=== PATIENT | female | born 1950 | race African-American/Black ===

== ENCOUNTER 2017-01-07 08:35 | Outpatient (CLI) | payer OTHER ==
[2014-05-08 10:02] VITALS: BP 120/78
[2017-01-07 09:26] LABS: eGFR (African) > 60; eGFR (Non-African) > 60
== END 2017-01-07 08:36 ==
LOC: LAB 08:35
PROVIDERS: ATTEND Family Medicine
DX: I10 Essential (primary) hypertension (principal)
CPT/HCPCS: 36415; 80053; 80061

== ENCOUNTER 2018-02-11 13:51 | Outpatient (CLI) | payer OTHER ==
[2014-05-08 10:02] VITALS: BP 120/78
[2018-02-11 14:38] LABS: eGFR (Non-African) > 60
== END 2018-02-11 14:00 ==
LOC: LAB 13:51
PROVIDERS: ATTEND Physician Assistant
DX: I10 Essential (primary) hypertension (principal); R00.0 Tachycardia, unspecified; Z13.6 Encounter for screening for cardiovascular disorders
CPT/HCPCS: 36415; 80053; 80061; 84439; 84443; 84481

== ENCOUNTER 2019-03-17 09:54 | Outpatient (CLI) | payer OTHER ==
[2014-05-08 10:02] VITALS: BP 120/78
[2019-03-17 10:52] LABS: HDL 56 mg/dL (>40); eGFR (Non-African) > 60
--- NOTE | 2019-03-17 12:26 | Diagnostic Imaging Report ---
JESSICA CRAFT [facility] [id number] [id number] Report Submission Date: Mar 17, 2019 12:23:30 PM CDT Patient Study Name: SULTANA HENNESSY Date: Mar 17, 2019 12:00:00 AM CDT Modality Type: DEXA\OT Gender: F Description: DEXA : 48 Institution: [facility] Physician: JESSICA CRAFT Examination: Bone density History: Assess bone mineralization Comparison exams: None available Technique: DEXA protocol Findings: Average bone mineral density from L1 through L4: 1.120 grams cm2. T score: -0.5 Average bone mineral density of the left femoral neck: 0.857 grams cm2. T score: -1.3 Average bone mineral density of the right femoral neck: 0.866 grams cm2. T score: -1.2 Impression: Normal lumbar spine mineralization for age Wall of bilateral femoral neck osteopenia. Electronically signed on Mar 17, 2019 12:23:30 PM CDT by: Sae PRUETT
== END 2019-03-17 09:56 ==
LOC: RAD 09:54
PROVIDERS: ATTEND Family Medicine
DX: I10 Essential (primary) hypertension (principal)
CPT/HCPCS: 36415; 77080; 80053; 80061